=== PATIENT | female | born 1975 | race Caucasian/White ===

== ENCOUNTER 2024-12-27 08:31 | Outpatient (CLI) | payer BC ==
[2024-12-27 09:53] LABS: #Basophils 0.04 10x3/uL (0.0-0.2); #Eosinophils 0.28 10x3/uL (0.0-0.7); #Monocytes 0.56 10x3/uL (0.11-0.59); #Neutrophils 5.72 10x3/uL (1.40-6.50); %Basophils 0.5 % (0.0-1.0); %Eosinophils 3.3 % (0.0-10.0); %Lymphocytes 21.7 % (21.0-51.0); %Monocytes 6.6 % (0.0-10.0); %Neutrophils 67.5 % (42.0-75.0); Hematocrit 37.2 % (36.0-47.0); Hemoglobin 12.3 g/dL (12.0-16.0); Mean Corpuscular Hemoglobin 32.3 pg (27.0-31.0); Mean Corpuscular Volume 97.6 fL (78.0-98.0); Platelet Count 264 10x3/uL (130-400); Red Blood Cell (RBC) Count 3.81 mill/uL (4.20-5.40); White Blood Cell (WBC) Count 8.47 10x3/uL (4.8-10.8)
[2024-12-27 10:11] LABS: Glucose, Urine (Dipstick) Normal (Negative); Leukocyte 75 Leu/uL (Negative); Protein, Urine (Dipstick) Negative (Neg-Trace); RBC/HPF 0-3 HPF (0-3); Specific Gravity, Urine 1.004 (1.002-1.036)
[2024-12-27 10:14] LABS: INR-International Normal Ratio 1.0; PTT 27.0 sec (22.9-36.1); Prothrombin Time 13.4 sec (12.0-14.7)
[2024-12-27 10:29] LABS: Bacteria/HPF 1+ HPF (None Seen)
[2024-12-27 10:33] LABS: Anion Gap 12 mmol/L (10-20); BUN (Urea Nitrogen) 11 mg/dL (9.8-20.1); Calc. Creatinine Clearance 0 mL/min (70-130); Calcium 9.5 mg/dL (7.8-10.44); Carbon Dioxide 24 mmol/L (22-29); Chloride 105 mmol/L (98-107); Glucose 80 mg/dL (70-105); Potassium 3.8 mmol/L (3.5-5.1); Sodium 137 mmol/L (136-145)
== END 2024-12-27 08:32 | disposition home or self-care (01) ==
LOC: LABBT 08:31
PROVIDERS: ATTEND Urology
DX: Z01.818 Encounter for other preprocedural examination (principal); N20.0 Calculus of kidney
CPT/HCPCS: 80048; 81001; 85025; 85610; 85730; 87086; 93005; 93010

== ENCOUNTER 2025-01-03 08:16 | Day surgery (SDC) | payer BC ==
[2024-12-27 08:43] VITALS: BMI 30.3
[2025-01-03] MEDS ORDERED: PROPOFOL 20 ML ONE (08:26)
[2025-01-03] MEDS ORDERED: Lidocaine 1% PF 5 ML VIAL ONE (08:26)
[2025-01-03] MEDS ORDERED: Rocuronium Bromide 10 MG/ML (10ML VIAL) ONE (08:26)
[2025-01-03] MEDS ORDERED: fentaNYL PF 100 MCG/2 ML SYRINGE ONE ×2 (08:26→11:05)
[2025-01-03] MEDS ORDERED: LevoFLOXacin D5W 500 mg (100 mL) BAG ONE (09:03)
[2025-01-03] MEDS ORDERED: Ondansetron PF 4 MG/2 ML Vial ONE (09:41)
[2025-01-03] MEDS ORDERED: Lidocaine 2% 6 ML (Jelly) SYR ONE (09:41)
[2025-01-03] MEDS ORDERED: SUGAMMADEX SODIUM 200 MG/2 ML VIAL ONE (10:22)
[2025-01-03] MEDS ORDERED: Oxybutynin 5 MG TAB ONE (10:50)
[2025-01-03] MEDS ORDERED: Ketorolac Tromethamine 30 MG (1 mL) VIAL ONE (11:20)
== END 2025-01-03 12:50 | disposition home or self-care (01) ==
LOC: SDC 08:16 → EDBD 12:30 → SDC 12:50
PROVIDERS: ATTEND Urology
PROC: 0TF48ZZ Fragmentation in Left Kidney Pelvis, Via Natural or Artificial Opening Endoscopic (ICD-10-PCS; principal; 2025-01-03)
DX: N20.0 Calculus of kidney (principal); N13.5 Crossing vessel and stricture of ureter without hydronephrosis; E11.9 Type 2 diabetes mellitus without complications; Z88.5 Allergy status to narcotic agent; Z88.8 Allergy status to other drugs, medicaments and biological substances
CPT/HCPCS: 74420; 82365; 88300; C1758; C1769; C2617; J1100; J1885; J1956; J2272; J2405; J2704; Q9967